=== PATIENT | male | born 1995 | race Caucasian/White ===

== ENCOUNTER 2017-06-13 16:44 | Emergency (ER) | payer OTHER ==
[2017-06-13 17:12] VITALS: RESP 16
[2017-06-13] MEDS ORDERED: Naproxen 500 MG TAB PO ONE (17:14)
[2017-06-13] MEDS ORDERED: Naproxen 500 MG TAB PO STA (17:23)
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
[2017-06-13 20:31] VITALS: BP 137/86; PULSE 81; TEMP 97.8
--- NOTE | 2017-06-14 09:05 | RAD ---
PROCEDURE: Left Knee Radiographs. HISTORY: Pain. COMPARISON: None. FINDINGS: BONES: Normal. No fracture. JOINTS: Normal. No osteoarthritis. JOINT EFFUSION: None. OTHER FINDINGS: None. IMPRESSION: No acute findings related to/accounting for the clinical presentation.
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
--- NOTE | 2017-06-14 09:19 | CT ---
PROCEDURE: CT HEAD WITHOUT CONTRAST. HISTORY: r/o bleed COMPARISON: None available. TECHNIQUE: Axial computed tomography images were obtained through the head/brain without intravenous contrast. Radiation dose: Total exam DLP = 870.65 mGy-cm. This CT exam was performed using one or more of the following dose reduction techniques: Automated exposure control, adjustment of the mA and/or kV according to patient size, and/or use of iterative reconstruction technique. FINDINGS: HEMORRHAGE: No intracranial hemorrhage. BRAIN: No mass effect or edema. No atrophy or chronic microvascular ischemic changes. VENTRICLES: Unremarkable. No hydrocephalus. CALVARIUM: Unremarkable. PARANASAL SINUSES: Unremarkable as visualized. No significant inflammatory changes. MASTOID AIR CELLS: Unremarkable as visualized. No inflammatory changes. OTHER FINDINGS: None. IMPRESSION: No acute intracranial abnormalities. No significant findings to account for the clinical presentation. Concordant results (preliminary interpretation) provided by [email or web address]. Procedure Completed: 19:03. Preliminary ([facility]) Report: Dictated and Authenticated: 19:40. Final Interpretation: 09:17 June 14, 2017.
--- NOTE | 2017-06-14 09:22 | CT ---
PROCEDURE: CT left lower extremity HISTORY: r/o patellar fracture COMPARISON: None TECHNIQUE: 2.5 mm axial acquisition and display. Coronal and sagittal reconstructions. Dose report (mGy-cm): 293.42 FINDINGS: Negative study for fracture No appreciable degenerative change. No joint effusion identified. No visualized, radiopaque loose bodies. Soft tissue swelling limited to the prepatellar space. IMPRESSION: Soft tissue swelling without acute articular or osseous abnormality. Concordant results (preliminary interpretation) provided by [facility]. Procedure Completed: 19:11 Preliminary ([facility]) Report: Dictated and Authenticated: 19:45 Final Interpretation: 09:20 June 14, 2017.
--- NOTE | 2017-06-17 10:11 | CARD ---
APPROVED REPORT EKG Measurement Heart [id number] <Conclusion> Normal sinus rhythm with sinus arrhythmia ST elevation, probably due to early repolarization Borderline ECG
[2017-06-18 12:00] VITALS: O2SAT 99
== END 2017-06-13 20:35 | disposition home or self-care (01) ==
LOC: H.ER 16:44
DX: S89.92XA Unspecified injury of left lower leg, initial encounter (principal); S09.90XA Unspecified injury of head, initial encounter; R07.1 Chest pain on breathing; V43.52XA Car driver injured in collision with other type car in traffic accident, initial encounter; Y92.410 Unspecified street and highway as the place of occurrence of the external cause